=== PATIENT | female | born 1975 | race Caucasian/White ===

== ENCOUNTER 2017-04-23 13:11 | Emergency (ER) | payer BC ==
[~2017-04-23] VITALS: Ht 175.3 cm; Wt 65.0 kg
[2017-04-23] MEDS ORDERED: ONDANSETRON 2MG/ML, 2ML IVPush ONE (14:00)
[2017-04-23] MEDS ORDERED: SODIUM CHLORIDE FLUSH 10ML SYR IVF ONE (14:00)
[2017-04-23 14:15] LABS: BASOPHILS # (AUTO) 0.07 x10^3/uL (0-0.1); BASOPHILS % (AUTO) 1 % (0-1); EOSINOPHILS # (AUTO) 0.05 x10^3/uL (0-0.4); EOSINOPHILS % (AUTO) 1 % (1-7); HCT (SEDRATE) 44.1 % (34.6-47.8); LYMPHOCYTES # (AUTO) 2.06 x10^3/uL (1-3.4); LYMPHOCYTES % (AUTO) 22 % (22-44); MD NO; MEAN CORPUSCULAR HEMOGLOBIN 31.8 pg (27.0-34.8); MEAN CORPUSCULAR HGB CONC 34.1 g/dL (32.4-35.8); MEAN CORPUSCULAR VOLUME 93.4 fL (80-100); MEAN PLATELET VOLUME 7.4 fL (7.4-10.4); MONOCYTES # (AUTO) 0.72 x10^3/uL (0.2-0.8); MONOCYTES % (AUTO) 8 % (2-9); NEUTROPHILS # (AUTO) 6.66 x10^3/uL (1.8-6.8); NEUTROPHILS % (AUTO) 70 % (42-75); PLATELET COUNT 540 x10^3/uL (130-400); RED BLOOD COUNT 4.72 x10^6/uL (3.82-5.3); RED CELL DISTRIBUTION WIDTH 12.3 % (9.6-15.2)
[2017-04-23 14:25] LABS: ALBUMIN 3.8 g/dL (3.4-5.0); ANION GAP 8 mmol/L (5-15); CALCIUM 8.6 mg/dL (8.5-10.1); CHLORIDE 107 mmol/L (98-107); CREATININE 0.55 mg/dL (0.55-1.02)
[2017-04-23 15:01] LABS: SEDIMENTATION RATE 15 mm/hr (0-20)
[2017-04-23] MEDS ORDERED: ONDANSETRON 2MG/ML, 2ML ONE (15:27)
[2017-04-23] MEDS ORDERED: MORPHINE SULFATE 4 MG/ML, 1ML ONE ×2 (15:28→16:47)
[2017-04-23] MEDS ORDERED: GABA300C10 PO (15:30)
[2017-04-23] MEDS ORDERED: HYDROmorphone 1 MG/ML, 1ML IVPush ONE (15:30)
[2017-04-23] MEDS ORDERED: MULT-90 PO (15:31)
[2017-04-23] MEDS: MORPHINE SULFATE 4 MG/ML, 1ML IVPush PRN ×2 (15:42→16:50)
[2017-04-23] MEDS ORDERED: GADOBUTROL 7.5 MMOL/7.5 ML PFS ONE (16:28)
[2017-04-23 16:52] VITALS: BP 130/85
[2017-04-23] MEDS ORDERED: KETOROLAC 30 MG/1 ML ONE (17:44)
[2017-04-23] MEDS ORDERED: DEXAMETHASONE 4 MG/ML, 5ML ONE (17:44)
[2017-04-23] MEDS ORDERED: HYDROmorphone 2 MG/ML, 1ML ONE (17:51)
[2017-04-23] MEDS ORDERED: KETOROLAC 30 MG/1 ML IVPush ONE (18:00)
[2017-04-23] MEDS ORDERED: DEXAMETHASONE 4 MG/ML, 1ML IVPush ONE (18:00)
== END 2017-04-23 19:03 | disposition home or self-care (01) ==
LOC: ED 15:50
DX: M77.8 Other enthesopathies, not elsewhere classified (principal)
CPT/HCPCS: 36415; 73723; 80048; 82040; 83605; 85025; 85651; 86140; 87040; 96374; 96375; 96376; 99285; A9585; J1100; J1885; J2405